=== PATIENT | female | born 1995 | race Hispanic/Latino ===

== ENCOUNTER 2023-12-08 23:39 | Emergency (ER) | payer BC ==
[2023-12-09] MEDS ORDERED: HYDROcodone/Acetaminophen 5/325 mg Tablet ONE (00:04)
== END 2023-12-09 00:12 | disposition home or self-care (01) ==
LOC: ERS 23:39
DX: S93.402A Sprain of unspecified ligament of left ankle, initial encounter (principal); X58.XXXA Exposure to other specified factors, initial encounter; Z55.6 Problems related to health literacy
CPT/HCPCS: 99283